=== PATIENT | female | born 1945 | race Caucasian/White ===

== ENCOUNTER 2017-10-10 14:43 | Emergency (ER) | payer MEDICARE, BC ==
[~2017-10-10] VITALS: Ht 160 cm; Wt 68.0 kg
[~2017-10-10 14:43] MED LIST: CEPHALEXIN500 MG PO; DIOVAN HCT160 MG/25 PO; JOINT SUPPORT1 CAP PO; OMEPRAZOLE20 M1 PO; PRAVASTATIN20 MG PO; TRAZODONE50 MG PO; VENLAFAXINE HCL75 M1 PO
[2017-10-10 16:30] LABS: HEMATOCRIT 42.4 % (37.0-47.0); IMMATURE GRANULOCYTES 0.3 % (0.0-1.0); MEAN CELL VOLUME 91.4 fL CALC (80.0-100.0); MEAN CORPUSCULAR HGB 30.2 pG CALC (26.0-32.0); NEUT# 3.69 thou/uL (2.00-7.15); RED BLOOD COUNT 4.64 mill/uL (4.20-5.60); RED CELL DISTRI WIDTH 12.5 % (11.5-15.5)
[2017-10-10 16:50] LABS: ALBUMIN 4.1 g/dL (3.2-5.0); ALKALINE PHOSPHATASE 126 u/l (38-126); AMYLASE 66 u/l (30-110); ANION GAP 16 (6-22 (CALC)); BILIRUBIN, TOTAL 0.4 mg/dL (0.0-1.4); BUN 13 mg/dL (8-23); BUN/CREATININE RATIO 15 (12-20 (CALC)); CARBON DIOXIDE 27 mmol/l (22-30); CHLORIDE 104 mmol/l (95-108); CREATININE 0.9 mg/dL (0.5-1.0); GFR > 60 ML/MIN (>=60 (CALC)); GFR FOR AFR.AMER. > 60 ML/MIN (>=60 (CALC)); LIPASE 228 u/l (23-300); SGOT/AST 24 u/l (9-36); SGPT/ALT 37 u/l (11-66); SODIUM 143 mmol/l (137-146); TOTAL PROTEIN 6.7 g/dL (6.3-8.2)
[2017-10-10 17:01] LABS: URINE BILIRUBIN - DIPSTICK NEGATIVE (NEGATIVE); URINE BLOOD DIPSTICK NEGATIVE (NEGATIVE); URINE COLOR YELLOW; URINE GLUCOSE - DIPSTICK NEGATIVE (NEGATIVE); URINE KETONE NEGATIVE (NEGATIVE); URINE LEUK ESTERASE NEGATIVE (NEGATIVE); URINE NITRITE - DIPSTICK NEGATIVE (Negative); URINE PROTEIN - DIPSTICK NEGATIVE (NEG-TRACE); URINE UROBILINOGEN - DIPSTICK 0.2 E.U./dL (0.2)
[2017-10-10 17:03] LABS: URINE CLARITY CLEAR
[2017-10-10] MEDS ORDERED: CIPROFLOXACN500 MG PO (17:17)
[2017-10-10] MEDS ORDERED: TRAMADOL HYDROC50 MG PO (17:17)
[2017-10-10] MEDS ORDERED: COLACE100 MG PO (17:17)
[2017-10-10 18:13] VITALS: BP 155/86
== END 2017-10-10 18:11 | disposition home or self-care (01) ==
LOC: ED 14:43
PROVIDERS: Emergency Medicine
DX: K57.32 Diverticulitis of large intestine without perforation or abscess without bleeding (principal); R10.32 Left lower quadrant pain; I10 Essential (primary) hypertension

== ENCOUNTER 2021-09-16 08:34 | Emergency (ER) | payer MEDICARE, BC ==
[~2021-09-16] VITALS: Ht 160 cm; Wt 68.1 kg
[~2021-09-16 08:34] MED LIST changes: +CIPROFLOXACN500 MG PO; +COLACE100 MG PO; +TRAMADOL HYDROC50 MG PO
[2021-09-16 09:00] VITALS: BP 124/87
[2021-09-16 09:30] VITALS: BP 115/71
[2021-09-16 09:44] LABS: HEMATOCRIT 40.4 % (37.0-47.0); IMMATURE GRANULOCYTES 0.3 % (0.0-5.0); MEAN CELL VOLUME 93.3 fL CALC (80.0-100.0); MEAN CORPUSCULAR HGB CONC 32.2 g/dL CAL (32.0-36.0); NEUT# 6.12 thou/uL (2.00-7.15); RED BLOOD COUNT 4.33 mill/uL (4.20-5.60); RED CELL DISTRI WIDTH 12.7 % (11.5-15.5)
[2021-09-16 10:00] VITALS: BP 112/60
[2021-09-16 10:21] LABS: ALBUMIN 3.3 g/dL (3.2-5.0); ALKALINE PHOSPHATASE 139 u/l (38-126); ANION GAP 9 (6-22 (CALC)); BILIRUBIN, TOTAL 0.9 mg/dL (0.0-1.4); BUN 10 mg/dL (8-23); BUN/CREATININE RATIO 14 (12-20 (CALC)); CARBON DIOXIDE 28 mmol/l (22-30); CHLORIDE 104 mmol/l (95-108); CREATININE 0.7 mg/dL (0.5-1.0); GFR > 60 ML/MIN (>=60 (CALC)); GFR FOR AFR.AMER. > 60 ML/MIN (>=60 (CALC)); LIPASE 110 u/l (23-300); POTASSIUM 3.7 mmol/l (3.5-5.1); SGOT/AST 49 u/l (9-36); SODIUM 138 mmol/l (137-146); TOTAL PROTEIN 6.2 g/dL (6.3-8.2)
[2021-09-16 10:30] VITALS: BP 118/59
[2021-09-16] MEDS ORDERED: CIPROFLOXACN500 MG PO (12:14)
[2021-09-16] MEDS ORDERED: METRONIDAZOLE500 MG PO (12:14)
[2021-09-16] MEDS ORDERED: TORADOL PO (12:14)
[2021-09-16 12:20] LABS: URINE BILIRUBIN - DIPSTICK NEGATIVE (NEGATIVE); URINE BLOOD DIPSTICK NEGATIVE (NEGATIVE); URINE COLOR YELLOW; URINE GLUCOSE - DIPSTICK NEGATIVE (NEGATIVE); URINE KETONE 15 mg/dL (NEGATIVE); URINE LEUK ESTERASE NEGATIVE (NEGATIVE); URINE PH 6.5 (4.5-8.0); URINE PROTEIN - DIPSTICK NEGATIVE (NEG-TRACE); URINE SPECIFIC GRAVITY <=1.005; URINE UROBILINOGEN - DIPSTICK 0.2 E.U./dL (0.2)
[2021-09-16 12:22] LABS: URINE NITRITE - DIPSTICK NEGATIVE (Negative)
[2021-09-16 12:55] VITALS: BP 137/79
== END 2021-09-16 12:55 | disposition home or self-care (01) ==
LOC: ED 08:34
PROVIDERS: Emergency Medicine
DX: K57.32 Diverticulitis of large intestine without perforation or abscess without bleeding (principal); I10 Essential (primary) hypertension; K58.9 Irritable bowel syndrome, unspecified; Z90.49 Acquired absence of other specified parts of digestive tract
CPT/HCPCS: Q9967